=== PATIENT | female | born 1985 | race Caucasian/White ===

== ENCOUNTER → 2022-04-25 11:08 | Outpatient (BNVA) | payer BC, SELFPAY | PROVIDERS: PCP Hospitalist; Visit Provider Psychiatry & Neurology Neurology | DX: Z13.89 Encounter for screening for other disorder (principal) ==

== ENCOUNTER 2022-05-09 07:45 | Outpatient (REF) | payer BC, SELFPAY ==
--- NOTE | 2022-05-09 07:51 | EEG_ITS ---
FINDINGS: The waking background activity consists of moderate to high voltage well-defined 10 to 11 Hz alpha frequency intermixed anteriorly with low voltage fast frequencies. Recurrent episodic burst of muscle artifacts are seen lasting from 1 to 5 seconds without any associated change in a background cerebellar rhythm. Photic stimulation is without activation. Hyperventilation was omitted. IMPRESSION: This waking EEG is within normal limits. Muscle movements are associated only with muscle artifacts and no epileptiform activity. MD CRISELDA Dominguez/JAQUELIN / [id number]
== END 2022-05-09 07:46 | disposition home or self-care (01) ==
LOC: HO.NEURO 07:45
PROVIDERS: PCP Hospitalist; Visit Provider Psychiatry & Neurology Neurology
DX: R25.9 Unspecified abnormal involuntary movements (principal)
CPT/HCPCS: 95816

== ENCOUNTER → 2022-07-22 13:41 | Outpatient (BNVA) | payer BC, SELFPAY | PROVIDERS: PCP Hospitalist; Visit Provider Psychiatry & Neurology Neurology ==